=== PATIENT | female | born 1990 | race African-American/Black ===

== ENCOUNTER → 2016-07-08 | Outpatient (CLI) | payer OTHER ==
[2016-06-18 23:44] VITALS: BP 120/77
[~2016-07-08] MED LIST: DOXY100C2 PO; HYDR-971 PO; ONDA4TAB10 SL; TRIA15CR3 TP
--- NOTE | 2016-07-08 08:55 | KCIC ---
PROCEDURE Pelvic ultrasound HISTORY Pelvic pain, follicular cyst followup COMPARISON May 12, 2016 [facility] FINDINGS Multiple transabdominal sonographic images of the pelvis are submitted. Uterus measured not 9.6 x 4.1 by 5 centimeters. Endometrium measured up to 0.7 centimeters in thickness. Right ovary measured 1.9 by 2.7 x 2.1 centimeters. There is a hypoechoic lesion of the right ovary on the order of 1.4 by 2.1 x 1.3 centimeters. Left ovary measured 1.3 by 2.5 x 2 centimeters. There is a hypoechoic lesion of the left ovary on the order 1.3 x 0.9 by 0.8 centimeters. Previously demonstrated collection of cysts in the left adnexal region is not demonstrated on submitted images. There is minimal nonspecific free fluid in the pelvis. There is normal low resistance vascularity of both ovaries. IMPRESSION 1. There are small bilateral ovarian cysts, minimal free fluid in the pelvis. Previously seen collection of cysts in the left adnexal region is not demonstrated on submitted images. Electronically signed by: Gonzalez Cano MD (Jul 08, 2016 08:54:18)
== END | disposition home or self-care (01) ==
LOC: KCIC US 07:51
PROVIDERS: ATTEND Obstetrics & Gynecology
DX: N83.292 Other ovarian cyst, left side (principal); N83.291 Other ovarian cyst, right side
CPT/HCPCS: 76856

== ENCOUNTER 2016-10-18 21:32 | Emergency (ER) | payer OTHER ==
[2016-10-18] MEDS ORDERED: IV NORMAL SALINE 1000ML BAG 1,000 ML IV SCH (22:30)
[2016-10-18] MEDS ORDERED: ACETAMINOPHEN 500 MG TABLET PO ONE (22:30)
[2016-10-18] MEDS ORDERED: METOCLOPRAMIDE HCL 10 MG/2 ML VIAL. IV ONE (22:30)
[2016-10-18 22:35] LABS: BASO # 0.1 x10^3/uL (0.0-0.2); BASO % 1 % (0-3); EOS % 1 % (0-3); HEMOGLOBIN 11.7 g/dL (12.0-15.5); LYMPH # 3.8 x10^3/uL (1.0-4.8); LYMPH % 35 % (24-48); MEAN CORPUSCULAR HEMOGLOBIN 28 pg (25-35); MEAN CORPUSCULAR HGB CONC 33 g/dL (31-37); MEAN CORPUSCULAR VOLUME 85 fL (79-100); MONO % 7 % (0-9); NEUT % 56 % (31-73); PLATELET COUNT 244 x10^3/uL (140-400); RED BLOOD COUNT 4.21 x10^6/uL (3.50-5.40); RED CELL DISTRIBUTION WIDTH 13.1 % (11.5-14.5); WHITE BLOOD COUNT 10.7 x10^3/uL (4.0-11.0)
[2016-10-18 22:39] LABS: BILIRUBIN,URINE NEGATIVE (NEG); GLUCOSE,URINE NEGATIVE (NEG); NITRITE,URINE NEGATIVE (NEG); PROTEIN,URINE NEGATIVE (NEG-TRACE); UROBILINOGEN,URINE 0.2 mg/dL (0.2 mg/dL)
[2016-10-18 22:44] LABS: BACTERIA,URINE MODERATE /HPF (0-FEW); RBC,URINE 0 /HPF (0-2); SQUAMOUS EPITHELIAL CELL,UR MOD /LPF; WBC,URINE OCC /HPF (0-4)
[2016-10-18 22:47] LABS: CALCIUM 9.1 mg/dL (8.5-10.1); CREATININE 0.8 mg/dL (0.6-1.0); GFR 105.8; POTASSIUM 3.7 mmol/L (3.5-5.1)
[2016-10-18 22:53] LABS: ALBUMIN 3.4 g/dL (3.4-5.0); ALBUMIN/GLOBULIN RATIO 0.9 (1.0-1.7); TOTAL BILIRUBIN 0.1 mg/dL (0.2-1.0); TOTAL PROTEIN 7.2 g/dL (6.4-8.2)
[2016-10-18] MEDS ORDERED: NITR100C62 PO (23:15)
[2016-10-18] MEDS ORDERED: DOXY1TAB3 PO (23:15)
--- NOTE | 2016-10-18 23:16 | PHYS DOC ---
Past Medical History Past Medical History: No Pertinent History Additional Past Medical Histor: OVARIAN CYST Past Surgical History: Other Additional Past Surgical Histo: D AND C Alcohol Use: None Drug Use: None Adult General Chief Complaint Chief Complaint: VOMITING IN HPI HPI Patient is a 26 year old female who presents with vomiting and setting of . Patient reports over the past week she has had occasional vomiting. She also reports fatigue, as well as mild headache that started when she arrived to the Emergency Department. 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 No abdominal pain, no vaginal bleeding or discharge, no urinary symptoms. Review of Systems Review of Systems Constitutional: Denies fever or chills Respiratory: Denies cough or shortness of breath Cardiovascular: Denies chest pain GI: Nausea, vomiting. Denies abdominal pain, or diarrhea : Denies vaginal bleeding or discharge, urinary symptoms Musculoskeletal: Denies back pain or joint pain Neurologic: Headache. Denies focal weakness or sensory changes Current Medications Current Medications Current Medications Medications (Trade) Dose Ordered Sig/Clifford Start Time Stop Time Status Last Admin Dose Admin Acetaminophen (Tylenol) 1,000 mg 1X ONCE 10/18/16 22:30 10/18/16 22:31 DC 10/18/16 22:34 1,000 MG Metoclopramide HCl (Reglan) 10 mg 1X ONCE 10/18/16 22:30 10/18/16 22:31 DC 10/18/16 22:34 10 MG Sodium Chloride (Iv Sodium Chloride 0.9% 1000ml Bag) 1,000 ml @ 1,000 mls/hr Q1H 10/18/16 22:30 10/18/16 23:27 DC 10/18/16 22:34 1,000 MLS/HR Allergies Allergies Allergies Coded Allergies Type Severity Reaction Last Updated Verified No Known Drug Allergies 04/28/15 No Physical Exam Physical Exam Constitutional: Well developed, well nourished, no acute distress, non-toxic appearance HENT: Normocephalic, atraumatic, bilateral external ears normal Eyes: EOMI, conjunctiva normal, no discharge Neck: Normal range of motion, no stridor Cardiovascular: Heart rate normal, regular rhythm, no murmur Lungs & Thorax: Bilateral breath sounds clear to auscultation Abdomen: Bowel sounds normal, soft, non-distended, minimal epigastric TTP without guarding or rebound Skin: Warm, dry, no erythema, no rash Extremities: No obvious deformity, no edema Neurologic: Alert and oriented X 3, strength and sensation to light touch intact and symmetrical throughout, no gross deficits noted Current Patient Data Vital Signs Vital Signs Date Time Temp Pulse Resp B/P Pulse Ox O2 Delivery O2 Flow Rate FiO2 10/18/16 23:20 78 18 118/67 100 Room Air 10/18/16 21:44 98.2 98.2 Lab Values Laboratory Tests Test 10/18/16 21:30 10/18/16 21:35 10/18/16 22:25 Urine Collection Type Unknown Urine Color Yellow Urine Clarity Clear Urine pH 6.0 Urine Specific [place] 1.020 Urine Protein Negativemg/dL (NEG-TRACE) Urine Glucose (UA) Negativemg/dL (NEG) Urine Ketones (Stick) Negativemg/dL (NEG) Urine Blood Negative (NEG) Urine Nitrite Negative (NEG) Urine Bilirubin Negative (NEG) Urine Urobilinogen Dipstick 0.2mg/dL (0.2 mg/dL) Urine Leukocyte Esterase Trace (NEG) Urine RBC 0/HPF (0-2) Urine WBC Occ/HPF (0-4) Urine Squamous Epithelial Cells Mod/LPF Urine Bacteria Moderate/HPF (0-FEW) Urine Mucus Marked/LPF POC Urine HCG, Qualitative Hcg positive (Negative) White Blood Count 10.7x10^3/uL (4.0-11.0) Red Blood Count 4.21x10^6/uL (3.50-5.40) Hemoglobin 11.7g/dL (12.0-15.5) L Hematocrit 36.0% (36.0-47.0) Mean Corpuscular Volume 85fL (79-100) Mean Corpuscular Hemoglobin 28pg (25-35) Mean Corpuscular Hemoglobin Concent 33g/dL (31-37) Red Cell Distribution Width 13.1% (11.5-14.5) Platelet Count 244x10^3/uL (140-400) Neutrophils (%) (Auto) 56% (31-73) Lymphocytes (%) (Auto) 35% (24-48) Monocytes (%) (Auto) 7% (0-9) Eosinophils (%) (Auto) 1% (0-3) Basophils (%) (Auto) 1% (0-3) Neutrophils # (Auto) 6.0x10^3uL (1.8-7.7) Lymphocytes # (Auto) 3.8x10^3/uL (1.0-4.8) Monocytes # (Auto) 0.8x10^3/uL (0.0-1.1) Eosinophils # (Auto) 0.1x10^3/uL (0.0-0.7) Basophils # (Auto) 0.1x10^3/uL (0.0-0.2) Sodium Level 135mmol/L (136-145) L Potassium Level 3.7mmol/L (3.5-5.1) Chloride Level 101mmol/L (98-107) Carbon Dioxide Level 25mmol/L (21-32) Anion Gap 9 (6-14) Blood Urea Nitrogen 6mg/dL (7-20) L Creatinine 0.8mg/dL (0.6-1.0) Estimated GFR (Cockcroft-Gault) 105.8 BUN/Creatinine Ratio 8 (6-20) Glucose Level 90mg/dL (70-99) Calcium Level 9.1mg/dL (8.5-10.1) Total Bilirubin 0.1mg/dL (0.2-1.0) L Aspartate Amino Transferase (AST) 22U/L (15-37) Alanine Aminotransferase (ALT) 19U/L (14-59) Alkaline Phosphatase 36U/L (46-116) L Total Protein 7.2g/dL (6.4-8.2) Albumin 3.4g/dL (3.4-5.0) Albumin/Globulin Ratio 0.9 (1.0-1.7) L Laboratory Tests 10/18/16 22:25 Laboratory Tests 10/18/16 22:25 EKG EKG [] Radiology/Procedures Radiology/Procedures [] Course & Med Decision Making Course & Med Decision Making Pertinent Labs and Imaging studies reviewed. (See chart for details) Patient is 26-year-old female who presents with vomiting in the setting of . No concerning findings on physical exam. Labs ordered to evaluate. IV fluids, dose of Reglan, acetaminophen ordered for relief of symptoms. Labs largely unremarkable. Does have bacteria in urine, although not a clear UTI. Regardless, however as patient is we will go ahead and treat with antibiotics. Discussed results with patient, who is feeling much better at this time. Will discharge with prescription for Diclegis and Macrobid. Given instructions for follow-up and return precautions. Dragon Disclaimer Dragon Disclaimer This electronic medical record was generated, in whole or in part, using a voice recognition dictation system. Departure Departure Impression: Primary Impression: Vomiting during Additional Impression: Bacteriuria during Disposition: HOME, SELF-CARE Condition: IMPROVED Referrals: NO PCP (PCP) Patient Instructions: Diet - Hyperemesis Gravidarum, Hyperemesis Gravidarum Additional Instructions: Thank you for allowing us to provide care today in the Emergency Department. Take the provided medication as directed. Be sure to take the full course of antibiotics. Schedule a follow up appointment with your ObGyn. Return promptly to the Emergency Department if you develop any new or concerning symptoms. Scripts Nitrofurantoin Monohyd/M-Cryst (Macrobid 100 Mg Capsule)100 Mg Capsule1 Cap PO BID #10 CAP Prov:CHICO KABA MD 10/18/16 Doxylamine/Pyridoxine Hcl (Diclegis Dr 10-10 Mg Tablet)1 Each Tablet.dr1 Each PO BID PRN NAUSEA #20 Prov:CHICO KABA MD 10/18/16 Problem Qualifiers CHICO KABA MD Oct 18, 2016 23:16
[2016-10-18 23:20] VITALS: BP 118/67
== END 2016-10-18 23:20 | disposition home or self-care (01) ==
LOC: ER 21:32
DX: O21.0 Mild hyperemesis gravidarum (principal); O26.899 Other specified pregnancy related conditions, unspecified trimester; R82.71 Bacteriuria; R10.13 Epigastric pain; R51 Headache; R53.83 Other fatigue; Z98.890 Other specified postprocedural states; Z3A.00 Weeks of gestation of pregnancy not specified
CPT/HCPCS: 36415; 80053; 81001; 81025; 85027; 87086; 96361; 96374; 99284; J2765; J7030

== ENCOUNTER 2017-09-25 12:38 | Emergency (ER) | payer OTHER ==
[2017-09-25 13:05] LABS: URINE HCG POC HCG NEGATIVE (Negative)
[2017-09-25] MEDS: ONDANSETRON PF 4 MG/2 ML VIAL. IV (13:23)
[2017-09-25] MEDS: KETOROLAC 30 MG/ML INJ. IV (13:23)
[2017-09-25] MEDS: LIDO:MAALOX:DONNATAL 1:1:1 15 ML SINGLE DOSE SWSW (13:24)
[2017-09-25 13:30] LABS: ADD MAN DIFF? NO
[2017-09-25 13:33] LABS: BASO % 0 % (0-3); EOS # 0.1 x10^3/uL (0.0-0.7); EOS % 2 % (0-3); HEMATOCRIT 39.2 % (36.0-47.0); HEMOGLOBIN 12.8 g/dL (12.0-15.5); LYMPH # 1.6 x10^3/uL (1.0-4.8); LYMPH % 21 % (24-48); MEAN CORPUSCULAR HEMOGLOBIN 27 pg (25-35); MEAN CORPUSCULAR HGB CONC 33 g/dL (31-37); MEAN CORPUSCULAR VOLUME 84 fL (79-100); MONO # 0.7 x10^3/uL (0.0-1.1); MONO % 9 % (0-9); NEUT # 5.3 x10^3uL (1.8-7.7); NEUT % 69 % (31-73); PLATELET COUNT 261 x10^3/uL (140-400); RED BLOOD COUNT 4.68 x10^6/uL (3.50-5.40); RED CELL DISTRIBUTION WIDTH 12.9 % (11.5-14.5); WHITE BLOOD COUNT 7.7 x10^3/uL (4.0-11.0)
[2017-09-25 13:42] LABS: ANION GAP 7 (6-14); BLOOD UREA NITROGEN 15 mg/dL (7-20); BUN/CREATININE RATIO 15 (6-20); CALCIUM 8.8 mg/dL (8.5-10.1); CARBON DIOXIDE 29 mmol/L (21-32); CHLORIDE 104 mmol/L (98-107); GFR 81.1; GLUCOSE 87 mg/dL (70-99); SODIUM 140 mmol/L (136-145)
[2017-09-25 13:43] LABS: BILIRUBIN,URINE NEGATIVE (NEG); CLARITY,URINE CLEAR; COLOR,URINE YELLOW; GLUCOSE,URINE NEGATIVE (NEG); NITRITE,URINE NEGATIVE (NEG); PROTEIN,URINE NEGATIVE (NEG-TRACE); UROBILINOGEN,URINE 0.2 mg/dL (0.2 mg/dL)
[2017-09-25 13:45] LABS: BACTERIA,URINE FEW /HPF (0-FEW); RBC,URINE OCC /HPF (0-2); SQUAMOUS EPITHELIAL CELL,UR FEW /LPF
[2017-09-25 13:48] LABS: ALBUMIN 3.7 g/dL (3.4-5.0); ALBUMIN/GLOBULIN RATIO 0.9 (1.0-1.7); ALK PHOS 69 U/L (46-116); ALT (SGPT) 20 U/L (14-59); AST (SGOT) 19 U/L (15-37); LIPASE 89 U/L (73-393); TOTAL BILIRUBIN 0.5 mg/dL (0.2-1.0); TOTAL PROTEIN 7.7 g/dL (6.4-8.2)
== END 2017-09-25 14:40 | disposition home or self-care (01) ==
LOC: ER 12:38
DX: R10.13 Epigastric pain (principal); R11.2 Nausea with vomiting, unspecified; K59.00 Constipation, unspecified
CPT/HCPCS: 36415; 80053; 81001; 81025; 83690; 85025; 96374; 96375; 99284-25; J1885; J2405

== ENCOUNTER 2018-07-10 18:56 | Observation (INO) | payer OTHER ==
[2017-09-25 13:00] VITALS: BP 125/73
[~2018-07-10 18:56] MED LIST changes: +DOXY1TAB3 PO; +HYDR-3164 PO; -HYDR-971 PO; +NITR100C62 PO; +RANI150T21 PO
[2018-07-10 19:23] LABS: BILIRUBIN,URINE NEGATIVE (NEG); CLARITY,URINE CLEAR; COLOR,URINE YELLOW; NITRITE,URINE NEGATIVE (NEG); PROTEIN,URINE NEGATIVE (NEG-TRACE)
[2018-07-10 19:30] LABS: AMPHETAMINE/METHAMPHETAMINE NEG (NEG); BARBITURATES NEG (NEG); BENZODIAZEPINES NEG (NEG); CANNABINOIDS NEG (NEG); COCAINE NEG (NEG); METHADONE NEG (NEG); OPIATES NEG (NEG); PHENCYCLIDINE NEG (NEG)
[2018-07-10 19:32] LABS: BACTERIA,URINE MODERATE /HPF (0-FEW); RBC,URINE 0 /HPF (0-2); SQUAMOUS EPITHELIAL CELL,UR MOD /LPF
== END 2018-07-10 20:49 | disposition home or self-care (01) ==
LOC: 3 SO LND 18:56
PROVIDERS: ADMIT Specialist; ATTEND Specialist
DX: O26.893 Other specified pregnancy related conditions, third trimester (principal); R10.9 Unspecified abdominal pain; Z3A.30 30 weeks gestation of pregnancy
CPT/HCPCS: 80307; 81001; 87086; 87186; G0378; G0379